=== PATIENT | male | born 1975 | race Caucasian/White ===

== ENCOUNTER → 2016-05-31 | Outpatient (CLI) | payer OTHER ==
[~2016-05-31] VITALS: Ht 172.7 cm; Wt 86.2 kg
[~2016-05-31] MED LIST: ADVIL200 MG PO; FLEXERIL5 MG PO; MOTRIN600 MG PO; NAPROSYN500 MG PO; NEURONTIN400 MG PO; NO HOME MEDS; PERCOCET 5/31 TABLET PO; PREDNISONE10 M1 PO; TIZANIDINE HCL4 M1 PO
== END | disposition home or self-care (01) ==
LOC: AMB 08:22
PROC: 0DB68ZX Excision of Stomach, Via Natural or Artificial Opening Endoscopic, Diagnostic (ICD-10-PCS; principal; 2016-05-31)
DX: K29.70 Gastritis, unspecified, without bleeding (principal); R10.13 Epigastric pain; R11.0 Nausea
CPT/HCPCS: 88305; 88342 TC; J2250

== ENCOUNTER 2017-08-27 02:41 | Emergency (ER) | payer OTHER ==
[~2017-08-27] VITALS: Ht 175.3 cm; Wt 75.0 kg
[2017-08-27 03:42] VITALS: BP 130/83
== END 2017-08-27 03:48 ==
LOC: EME → EDBD 02:41 → EME 03:48
DX: S20.451A Superficial foreign body of right back wall of thorax, initial encounter (principal); S30.850A Superficial foreign body of lower back and pelvis, initial encounter; Y35.491A Legal intervention involving other sharp objects, law enforcement official injured, initial encounter
CPT/HCPCS: 99281; 99283